=== PATIENT | male | born 1970 | race Caucasian/White ===

== ENCOUNTER 2019-06-01 22:52 | Emergency (ER) | payer OTHER, MEDICAID, SELFPAY ==
[2019-06-01 23:03] VITALS: BP 125/83; PULSE 80; RESP 18; TEMP 36.6; O2SAT 99; BMI 28.5
--- NOTE | 2019-06-02 00:13 | ED_ITS ---
HPI - Wound/Laceration General Chief Complaint: Wound/Laceration Stated Complaint: LT THUMB CUT Time Seen by Provider: 06/02/19 00:07 Source: patient Mode of arrival: ambulatory Limitations: no limitations History of Present Illness HPI narrative: Patient is a 48-year-old male who presents with left thumb laceration. He accidentally cut himself with his fairly new pocket knife while cutting a zip line. Denies numbness or tingling. He states tetanus is up-to-date Onset (ago): hour(s) Related Data Previous Rx's Medication Instructions Recorded montelukast [Singulair] 10 mg PO QDAY #20 tab 07/20/17 Review of Systems Review of Systems GENERAL: Denies chills,fever HEENT: Denies throat pain RESPIRATORY: Denies dyspnea, cough, wheezing CARDIOVASCULAR: Denies chest pain, palpitations GASTROINTESTINAL: Denies nausea, vomiting MUSCULOSKELETAL: Denies extremity pain, injury SKIN: See HPI NEUROLOGIC: Denies weakness, dizziness, headache, numbness 8 point review of systems is negative except for those stated above and HPI PFSH Social History Smoking Status: Never smoker Social History Smoking Status: Never smoker Exam Initial Vital Signs Initial Vital Signs: Vital Signs Temperature 98 F 06/01/19 23:03 Pulse Rate 80 06/01/19 23:03 Respiratory Rate 18 06/01/19 23:03 Blood Pressure 125/83 06/01/19 23:03 Pulse Oximetry 99 06/01/19 23:03 GENERAL: Well-appearing, well-nourished and in no acute distress. CARDIOVASCULAR: peripheral pulses in tact, cap refill <2 sec RESPIRATORY: No respiratory distress, speaks in full sentences without diff iculty EXTREMITIES: Normal range of motion, no clubbing or edema. Neurovascularly intact Left thumb full extension flexion and good opposition neurovascularly intact NEUROLOGICAL: Cranial nerves II through XII grossly intact. Normal gait and speech. SKIN: 2 cm laceration on left thumb palmar side Procedures Laceration Repair Laceration 1: Site: hand (thumb) Side (If applicable): left Size (cm): 1.5 Description: linear Depth: simple, single layer Local Anesthetic: lidocaine 1% Amount of anesthesia used (mL): 2 Pre-repair: wound explored, irrigated extensively and deep structures intact Skin layer closed with: nylon Size (cm): 4-0 Number of sutures: 2 Technique: simple, interrupted Course Orders Ordered: Discontinued Medications Lidocaine HCl (Xylocaine 1%) 10 ml INJ NOW ONE Stop: 06/02/19 00:15 Last Admin: 06/02/19 01:03 Dose: Not Given Lidocaine HCl (Xylocaine 1% (Pf)) 5 ml SUBCUT NOW ONE Stop: 06/02/19 00:51 Last Admin: 06/02/19 00:55 Dose: 5 ml Vital Signs - 8 hr 06/01/19 23:03 06/02/19 01:20 Temperature 98 F Pulse Rate 80 60 Respiratory Rate 18 18 Blood Pressure 125/83 116/64 Pulse Oximetry 99 99 Discharge Plan Departure Patient Disposition: Home Clinical Impression: Laceration of left thumb Qualifiers: Encounter type: initial encounter Damage to nail status: without damage Foreign body presence: without foreign body Qualified Code(s): S61.012A - Laceration without foreign body of left thumb without damage to nail, initial encounter Discharge Date/Time: 06/02/19 01:21 Interventions: ED Discharge Assessment Last Done: 06/02/19 01:20 Instructions: DI for Laceration Repair Activity Restrictions/Additional Instructions: 1. Have your suture removed in 5-7 days, you may go to walk-in clinic, return to the ER or call your primary care physician. 2. No soaking in water including dishes, bathtubs, Lakes, swimming pools etc 3. Signs of infection include, but not limited to, increased redness, increased swelling, increased pain, fever and purulent drainage, if the symptoms should arise, you may need an antibiotic and you should have a reevaluation either by your primary care provider or by the emergency department. Prescriptions: No Action montelukast [Singulair] 10 MG tablet 10 mg PO QDAY Qty: 20 RF: 0
[2019-06-02] MEDS: LIDOCAINE 1% (PF) INJ 5 ML SUBCUT (00:55)
[2019-06-02 01:20] VITALS: BP 116/64; PULSE 60; RESP 18; O2SAT 99
== END 2019-06-02 01:21 | disposition home or self-care (01) ==
PROVIDERS: Emergency Provider Emergency Medicine
DX: S61.012A Laceration without foreign body of left thumb without damage to nail, initial encounter (principal)
CPT/HCPCS: 12001; 99282; 99283